=== PATIENT | male | born 1955 | race Caucasian/White ===

== ENCOUNTER 2016-06-13 16:42 | Emergency (ER) | payer OTHER ==
[~2016-06-13] VITALS: Ht 177.8 cm; Wt 88.6 kg
[~2016-06-13 16:42] MED LIST: MUPI1OIN6 TP; OSEL45CA PO; SULF1TAB7 PO
[2016-06-13 16:45] VITALS: BP 135/93; PULSE 91; RESP 16; O2SAT 97
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
[2016-06-13] MEDS ORDERED: MUPI22OI2 TOP (18:58)
== END 2016-06-13 19:16 | disposition home or self-care (01) ==
LOC: SED 16:42
DX: L98.9 Disorder of the skin and subcutaneous tissue, unspecified (principal); I10 Essential (primary) hypertension; Z76.0 Encounter for issue of repeat prescription